=== PATIENT | female | born 1940 | race Caucasian/White ===

== ENCOUNTER 2017-10-29 14:22 | Emergency (ER) | payer OTHER, MEDICAID ==
[2017-10-29] MEDS ORDERED: CATAPRES TAB 0.1 MG ONE (14:31)
[2017-10-29] MEDS ORDERED: CATAPRES TAB 0.1 MG PO ONE (14:34)
--- NOTE | 2017-10-29 14:39 | DR.GENAD ---
HPI - PCP Primary Care Physician: fiona - Complaint/Symptoms Chief Complaint:: Patient c/o nausea, weakness and diarrhea x1 day. Patient's family states patent has a history of pancreatitis. Patient is very pale upon arrival. Patient placed in cardiac room on monitor. - Source History Provided: Patient - Mode of Arrival Mode of Arrival: Ambulatory - Timing Onset of Chief Complaint: 10/29/17 PMH - PMH Past Medical History: Yes Past Medical History: Diabetes, Dyslipidemia, Hypertension Past Surgical History: Yes Surgical History: Past Surgical History Comment: tubal ligation - Family History History of Family Medical Conditions: Yes Family Medical History: Cancer, [place], Hypertension - Social History Does patient currently use any type of tobacco product: No Have you used tobacco products in the last 12 months: No Type of Tobacco Use: None Does any household member use tobacco: No Alcohol Use: None Do you use any recreational Drugs:: No Lives With: Family Lives Where: Home - infectious screening In the last 2 months have you had wt loss of >10#?: NO Have you had fever, night sweats or hemotysis?: No Have you traveled outside the country in the last 6 months?: No Isolation: Standard ROS - Review of Systems Eyes: No Symptoms Reported ENTM: No Symptoms Reported Respiratoy: No Symptoms Reported Cardiovascular: No Symptoms Reported Gastrointestinal/Abdominal: No Symptoms Reported Genitourinary: No Symptoms Reported Neurological: No Symptoms Reported Musculoskeletal: No Symptoms Reported Integumentary: No Symptoms Reported Hematologic/Lymphatic: No Symptoms Reported Endocrine: No Symptoms Reported Psychiatric: No Symptoms Reported All Other Systems: Reviewed and Negative PE - Vital Signs Vitals: Temperature 97.7 F Pulse Rate 88 Respiratory Rate 22 Blood Pressure 217/91 O2 Sat by Pulse Oximetry 99 - General Limitations: No Limitations General Appearance: Alert, In No Apparent Distress - Head Head Exam: Normal Inspection, Atraumatic - Eyes Eye exam: Normal Appearance, PERRL, EOMI - ENT ENT Exam: Normal Exam, Normal Oropharynx External Ear Exam: Normal External Inspection TM/Canal Exam: Bilateral Normal Nose Exam: Normal Nose Exam Mouth Exam: Normal Inspection Throat Exam: Normal Inspection - Neck Neck Exam: Normal Inspection - Chest Chest Inspection: Normal Inspection, Symmetric Chest Wall Rise - Respiratory Respiratory Exam: Normal Lung Sounds Bilat Respiratory Exam: Bilateral Clear to Auscultation - Cardiovascular Cardiovascular Exam: Regular Rate, Normal Rhythm - Abdominal Exam Abdominal Exam: Normal Inspection Abdominal Tenderness: negative: RUQ, RLQ, LUQ, LLQ, Epigastrium, Suprapubic, Diffuse, Mild, Moderate, Severe, Other - Extremities Extremities Exam: Normal Inspection, Full ROM - Back Back Exam: Normal Inspection, Full ROM - Neurologic Neurological Exam: Alert, Oriented X3, CN II-XII Intact - Psychiatric Psychiatric Exam: Normal Affect, Normal Mood - Skin Skin Exam: Warm, Dry, Intact ROR - Labs Reviewed Result Diagrams: 10/29/17 14:48 10/29/17 14:48 Laboratory: WBC 10.0 X10^3/uL (3.6-10.0) 10/29/17 14:48 RBC 4.05 X10^6/uL (3.5-5.4) 10/29/17 14:48 Hgb 11.3 g/dL (12.0-16.0) L 10/29/17 14:48 Hct 33.8 % (36.0-47.0) L 10/29/17 14:48 MCV 83.5 fL (80.0-100.0) 10/29/17 14:48 MCH 28.0 pg (27.0-34.0) 10/29/17 14:48 MCHC 33.6 g/dL (33.0-35.0) 10/29/17 14:48 RDW 12.7 % (11.6-16.5) 10/29/17 14:48 Plt Count 211 X10^3/uL (150.0-450.0) 10/29/17 14:48 MPV 8.3 fL (7.4-11.0) 10/29/17 14:48 Neut % (Auto) 77.6 % (42.0-75.0) H 10/29/17 14:48 Lymph % (Auto) 16.0 % (21.0-51.0) L 10/29/17 14:48 Kidder % (Auto) 5.5 % (0.0-13.0) 10/29/17 14:48 Eos % (Auto) 0.3 % (0.9-2.9) L 10/29/17 14:48 Baso % (Auto) 0.6 % (0.2-1.0) 10/29/17 14:48 Neut # (Auto) 7.7 x10^3/uL (2.2-4.8) H 10/29/17 14:48 Lymph # (Auto) 1.6 X10^3/uL (1.3-2.9) 10/29/17 14:48 Kidder # (Auto) 0.5 x10^3/uL (0.3-0.8) 10/29/17 14:48 Eos # (Auto) 0.0 x10^3/uL (0.0-0.2) 10/29/17 14:48 Baso # (Auto) 0.1 X10^3/uL (0.0-0.1) 10/29/17 14:48 Absolute Nucleated RBC 0.0 /100WBC 10/29/17 14:48 - XRAY XRAY Interpreted by: Radiologist (CT Brain: There is age appropriate mild generalized brain atrophy with concomitant ventricular and sulcal enlargement. 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 No acute bleed,mass effect, or abnormal extra axial collection is identified. No significant skeletal abnromality. The visualized paranasal sinuses and mastoid air cells are grossly clear. Impression: No acute intracranial abnormality.) - Discharge Plan Condition: Stable - Follow ups/Referrals Follow ups/Referrals: ROMAN MOSQUERA [Primary Care Provider] - 3 days - Instructions
[2017-10-29 14:40] VITALS: BMI 25.4
[2017-10-29] MEDS ORDERED: LR 1000 ML IV 1,000 ML IV ONE (14:43)
[2017-10-29 14:57] LABS: BASOPHILS # (AUTO) 0.1 X10^3/uL (0.0-0.1); BASOPHILS % (AUTO) 0.6 % (0.2-1.0); EOSINOPHILS % (AUTO) 0.3 % (0.9-2.9); HEMATOCRIT 33.8 % (36.0-47.0); HEMOGLOBIN 11.3 g/dL (12.0-16.0); LYMPHOCYTES # (AUTO) 1.6 X10^3/uL (1.3-2.9); MEAN CORPUSCULAR HGB CONC 33.6 g/dL (33.0-35.0); MEAN CORPUSCULAR VOLUME 83.5 fL (80.0-100.0); MEAN PLATELET VOLUME 8.3 fL (7.4-11.0); MONOCYTES # (AUTO) 0.5 x10^3/uL (0.3-0.8); MONOCYTES % (AUTO) 5.5 % (0.0-13.0); NEUTROPHILS # (AUTO) 7.7 x10^3/uL (2.2-4.8); NEUTROPHILS % (AUTO) 77.6 % (42.0-75.0); PLATELET COUNT 211 X10^3/uL (150.0-450.0); RED BLOOD COUNT 4.05 X10^6/uL (3.5-5.4); RED CELL DISTRIBUTION WIDTH 12.7 % (11.6-16.5)
[2017-10-29] MEDS ORDERED: LR 1000 ML IV 1,000 ML IV SCH (15:00)
--- NOTE | 2017-10-29 15:08 | CT ---
CT head without contrast Indication: Weakness, nausea, hypertension Comparison: None Technique: CT images of the head were obtained without contrast. Automatic exposure control was utili Anturisd. Findings: There is age-appropriate mild generalized brain atrophy with concomitant ventricular and dinero lcal enlargement. 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 No acute bleed, mass effect, or abnormal extra-axial collection is identified. No significant skeleta l abnormality. The visualized paranasal sinuses and mastoid air cells are grossly clear. Impression: No acute intracranial abnormality. Reported By:
[2017-10-29 15:16] LABS: BLOOD UREA NITROGEN 15 mg/dL (7-18); CALCIUM 8.4 mg/dL (8.5-10.1); CARBON DIOXIDE 25.9 mmol/L (21-32); CHLORIDE 104 mmol/L (98-107); COR NA(FOR HYPERGLY) 142 mmol/L (136-145); CREATININE 1.19 mg/dL (0.55-1.02); SODIUM 140 mmol/L (136-145); TROPONIN I < 0.02 ng/mL (0-1.5); eGFR BLACK RACES 57 (>60); eGFR NON BLACK RACES 47 (>60)
[2017-10-29 15:21] LABS: ALANINE AMINOTRANSFERASE 17 Units/L (12-78); ALBUMIN 3.8 g/dL (3.4-5.0); ALKALINE PHOSPHATASE 91 Units/L (46-116); ASPARTATE AMINO TRANSFERASE 16 Units/L (15-37); CKMB % 2.2 % (<4); CREATINE KINASE 46 Units/L (26-192); CREATINE KINASE MB < 1.0 ng/mL (0-4.0); TOTAL PROTEIN 7.6 g/dL (6.4-8.2)
[2017-10-29] MEDS ORDERED: CATAPRES TAB 0.2 MG ONE (15:23)
[2017-10-29] MEDS ORDERED: CATAPRES TAB 0.2 MG PO ONE (15:23)
[2017-10-29 15:42] LABS: AMYLASE 91 Units/L (25-115); LIPASE 144 Units/L (73-393)
[2017-10-29 17:01] VITALS: BP 155/71
== END 2017-10-29 17:14 | disposition home or self-care (01) ==
LOC: ER 14:32
DX: R42 Dizziness and giddiness (principal)
CPT/HCPCS: 36415; 70450; 80053; 82150; 82550; 82553; 83690; 84484; 85025; 93005; 93010; 96365; 96367; 96374; 99282; 99283; A4222; J7120